=== PATIENT | male | born 1965 | race Hispanic/Latino ===

== ENCOUNTER 2017-01-25 14:30 | Emergency (ER) | payer OTHER ==
[~2017-01-25] VITALS: Ht 175.3 cm; Wt 92.5 kg
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
[2017-01-25] MEDS ORDERED: ATORVASTATIN CA20 M1 PO (15:30)
[2017-01-25] MEDS ORDERED: CLOPIDOGREL75 M1 PO (15:30)
[2017-01-25] MEDS ORDERED: ALPRAZOLAM0.25 M1 (15:31)
[2017-01-25] MEDS ORDERED: GABAPENTIN400 M2 (15:31)
[2017-01-25] MEDS ORDERED: DULOXETINE HCL60 MG (15:31)
[2017-01-25] MEDS ORDERED: ESCITALOPRAM OX20 MG (15:32)
[2017-01-25] MEDS ORDERED: ASPIRIN EC81 M1 PO (15:32)
[2017-01-25] MEDS ORDERED: METOPROLOL SUCC25 M1 (15:32)
[2017-01-25] MEDS ORDERED: VITAMIN D2000 UNI1 PO (15:33)
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
[2017-01-25 16:10] VITALS: BP 107/69
== END 2017-01-25 16:18 ==
LOC: ERH 14:30
DX: S39.012A Strain of muscle, fascia and tendon of lower back, initial encounter (principal); S16.1XXA Strain of muscle, fascia and tendon at neck level, initial encounter; S50.12XA Contusion of left forearm, initial encounter; S09.90XA Unspecified injury of head, initial encounter; V89.2XXA Person injured in unspecified motor-vehicle accident, traffic, initial encounter; Y92.411 Interstate highway as the place of occurrence of the external cause
CPT/HCPCS: 72110; 73090-LT